=== PATIENT | female | born 1965 | race Caucasian/White ===

== ENCOUNTER 2017-09-25 21:57 | Emergency (ER) | payer SELFPAY ==
[~2017-09-25] VITALS: Ht 162.6 cm; Wt 90.0 kg
[~2017-09-25 21:57] MED LIST: AMLODIPINE BESYL5 MG PO; AMPICILLIN500 MG PO; ASPIRIN CHEWABL81 MG PO; ATUSS DS OR; AVELOX400 MG OR; CLARITHROMYCIN500 MG PO; GLIPIZIDE5 M2 PO; GLUCOPHAGE500 MG OR; LIPITOR10 MG OR; LIPITOR20 MG PO; LISINOPRIL20 M1 PO; LORTAB 5/3255 MG PO; MECLIZINE25 MG PO; METFORMIN1000 MG PO; METRONIDAZOL500 MG PO; NIACIN SR500 MG PO; OMEPRAZOLE20 MG PO; PHENERGAN25 MG RE; PRAVASTATIN20 MG PO; PREVACID30 M2 PO; TOPAMAX25 MG OR; TOUJEO SOL300 UNIT/M SC; VASERETIC1 TAB OR; WELLBUTRIN150 MG OR; ZOFRAN ODT4 MG PO; [UNRECOGNIZED DRUG - OTHER] OR
[2017-09-25 23:00] VITALS: BP 138/72
== END 2017-09-25 23:00 | disposition home or self-care (01) | DRG 605 ==
LOC: ED 21:57
PROC: 0HQFXZZ Repair Right Hand Skin, External Approach (ICD-10-PCS; principal; 2017-09-25)
DX: S61.411A Laceration without foreign body of right hand, initial encounter (principal); E11.9 Type 2 diabetes mellitus without complications; I10 Essential (primary) hypertension; W26.8XXA Contact with other sharp object(s), not elsewhere classified, initial encounter

== ENCOUNTER 2018-01-23 11:12 | Emergency (ER) | payer SELFPAY ==
[~2018-01-23] VITALS: Ht 162.6 cm; Wt 92.7 kg
[2018-01-23 11:52] VITALS: BP 153/88
[2018-01-23] MEDS ORDERED: BENADRYL 50MG C50 MG PO ×2 (12:25→12:29)
[2018-01-23] MEDS ORDERED: MEDDOSEPAK PO ×2 (12:25→12:29)
[2018-01-23] MEDS ORDERED: GLUCOTROL10 MG PO (12:28)
[2018-01-23] MEDS ORDERED: PHENERGAN25 MG RE (12:29)
== END 2018-01-23 12:37 | disposition home or self-care (01) | DRG 607 ==
LOC: ED 11:12
DX: S60.465A Insect bite (nonvenomous) of left ring finger, initial encounter (principal); M79.89 Other specified soft tissue disorders; E11.9 Type 2 diabetes mellitus without complications; I10 Essential (primary) hypertension; W57.XXXA Bitten or stung by nonvenomous insect and other nonvenomous arthropods, initial encounter

== ENCOUNTER 2018-09-05 09:07 | Emergency (ER) | payer SELFPAY ==
[~2018-09-05] VITALS: Ht 162.6 cm; Wt 90.9 kg
[~2018-09-05 09:07] MED LIST changes: +BENADRYL 50MG C50 MG PO; +GLUCOTROL10 MG PO; +MEDDOSEPAK PO
[2018-09-05 09:31] LABS: HEMATOCRIT 48.1 % (37.0-47.0); HEMOGLOBIN 15.3 g/dl (12.0-16.0); IMMATURE GRANULOCYTES 0.3 % (0.0-5.0); MEAN CELL VOLUME 85.4 fL CALC (80.0-100.0); MEAN CORPUSCULAR HGB 27.2 pG CALC (26.0-32.0); MEAN CORPUSCULAR HGB CONC 31.8 g/L CALC (32.0-36.0); NEUT# 13.44 thou/uL (2.00-7.15); RED BLOOD COUNT 5.63 mill/uL (4.20-5.60); RED CELL DISTRI WIDTH 13.2 % (11.5-15.5)
[2018-09-05 09:31] LABS: URINE BILIRUBIN - DIPSTICK NEGATIVE (NEGATIVE); URINE BLOOD DIPSTICK NEGATIVE (NEGATIVE); URINE COLOR YELLOW; URINE GLUCOSE - DIPSTICK NEGATIVE (NEGATIVE); URINE KETONE 15 mg/dL (NEGATIVE); URINE LEUK ESTERASE NEGATIVE (NEGATIVE); URINE NITRITE - DIPSTICK NEGATIVE (Negative); URINE PROTEIN - DIPSTICK NEGATIVE (NEG-TRACE); URINE UROBILINOGEN - DIPSTICK 0.2 E.U./dL (0.2)
[2018-09-05 10:15] LABS: ALKALINE PHOSPHATASE 82 u/l (38-126); ANION GAP 19 (6-22 (CALC)); BILIRUBIN, TOTAL 1.4 mg/dL (0.0-1.4); BUN 19 mg/dL (7-17); BUN/CREATININE RATIO 26 (12-20 (CALC)); CARBON DIOXIDE 29 mmol/l (22-30); CHLORIDE 98 mmol/l (95-108); CREATININE 0.8 mg/dL (0.5-1.0); GFR > 60 ML/MIN (>=60 (CALC)); GFR FOR AFR.AMER. > 60 ML/MIN (>=60 (CALC)); LIPASE 96 u/l (23-300); SGOT/AST 50 u/l (14-36); SODIUM 142 mmol/l (137-146); TOTAL PROTEIN 8.1 g/dL (6.3-8.2)
[2018-09-05] MEDS ORDERED: ONDANSETRON4 MG PO (10:58)
[2018-09-05 11:12] VITALS: BP 140/83
== END 2018-09-05 11:19 | disposition home or self-care (01) | DRG 392 ==
LOC: ED 09:07
PROVIDERS: Family Medicine
DX: K52.9 Noninfective gastroenteritis and colitis, unspecified (principal); E11.9 Type 2 diabetes mellitus without complications; I10 Essential (primary) hypertension

== ENCOUNTER 2019-04-22 10:10 | Emergency (ER) | payer SELFPAY ==
[~2019-04-22] VITALS: Ht 152.4 cm; Wt 90.9 kg
[~2019-04-22 10:10] MED LIST changes: +ONDANSETRON4 MG PO
[2019-04-22] MEDS ORDERED: TRAMADOL HYDROC50 MG PO (11:45)
[2019-04-22 12:05] VITALS: BP 119/79
== END 2019-04-22 12:05 | disposition home or self-care (01) | DRG 563 ==
LOC: ED 10:10
DX: S83.92XA Sprain of unspecified site of left knee, initial encounter (principal); S39.012A Strain of muscle, fascia and tendon of lower back, initial encounter; E11.9 Type 2 diabetes mellitus without complications; I10 Essential (primary) hypertension; X50.0XXA Overexertion from strenuous movement or load, initial encounter; Y93.9 Activity, unspecified; Z79.84 Long term (current) use of oral hypoglycemic drugs

== ENCOUNTER 2019-12-10 00:01 | Emergency (ER) | payer SELFPAY ==
[~2019-12-10] VITALS: Ht 162.6 cm; Wt 92.3 kg
[~2019-12-10 00:01] MED LIST changes: +TRAMADOL HYDROC50 MG PO
[2019-12-10 01:05] LABS: IMMATURE GRANULOCYTES 0.3 % (0.0-5.0); MEAN CELL VOLUME 84.4 fL CALC (80.0-100.0); NEUT# 5.76 thou/uL (2.00-7.15); RED BLOOD COUNT 4.88 mill/uL (4.20-5.60); RED CELL DISTRI WIDTH 13.3 % (11.5-15.5)
[2019-12-10 01:08] LABS: ALBUMIN 4.7 g/dL (3.2-5.0); ALKALINE PHOSPHATASE 66 u/l (38-126); AMYLASE 48 u/l (30-110); ANION GAP 13 (6-22 (CALC)); BUN 16 mg/dL (7-17); BUN/CREATININE RATIO 20 (12-20 (CALC)); CARBON DIOXIDE 31 mmol/l (22-30); CHLORIDE 98 mmol/l (95-108); CREATININE 0.8 mg/dL (0.5-1.0); GFR > 60 ML/MIN (>=60 (CALC)); GFR FOR AFR.AMER. > 60 ML/MIN (>=60 (CALC)); LIPASE 187 u/l (23-300); POTASSIUM 3.5 mmol/l (3.5-5.1); SGOT/AST 44 u/l (14-36); SODIUM 138 mmol/l (137-146); TOTAL PROTEIN 7.5 g/dL (6.3-8.2)
[2019-12-10 01:11] LABS: HEMATOCRIT 41.2 % (37.0-47.0); HEMOGLOBIN 13.2 g/dl (12.0-16.0)
[2019-12-10 01:20] LABS: URINE BILIRUBIN - DIPSTICK NEGATIVE (NEGATIVE); URINE BLOOD DIPSTICK LARGE (NEGATIVE); URINE GLUCOSE - DIPSTICK NEGATIVE (NEGATIVE); URINE KETONE TRACE mg/dL (NEGATIVE); URINE NITRITE - DIPSTICK NEGATIVE (Negative); URINE PROTEIN - DIPSTICK 100 mg/dL (NEG-TRACE); URINE SPECIFIC GRAVITY >=1.030; URINE UROBILINOGEN - DIPSTICK 0.2 E.U./dL (0.2)
[2019-12-10 01:20] LABS: MYOGLOBIN 36 ng/mL (0 - 62)
[2019-12-10 01:24] LABS: URINE LEUK ESTERASE NEGATIVE (NEGATIVE); URINE RBC >100 RBC/hpf (0-5)
[2019-12-10 01:25] LABS: URINE BACTERIA MANY hpf; URINE EPITHELIAL CELLS MODERATE EPI/hpf (0-FEW); URINE YEAST MODERATE hpf
[2019-12-10 01:27] LABS: URINE COLOR BLOODY
[2019-12-10] MEDS ORDERED: TORADOL PO (04:46)
[2019-12-10] MEDS ORDERED: TAMSULOSIN0.4 MG PO (04:46)
[2019-12-10] MEDS ORDERED: BACTRIM DS1 TAB PO (04:46)
[2019-12-10 05:07] VITALS: BP 148/73
[2019-12-11] MEDS ORDERED: QMIIZ ODT15 MG PO (08:30)
[2019-12-11] MEDS ORDERED: KEFLEX500 M1 PO ×2 (12:29)
[2019-12-11] MEDS ORDERED: PHENERGAN25 MG/TAB PO (12:29)
[2019-12-11] MEDS ORDERED: DIFLUCAN100 M1 PO ×2 (18:16)
== END 2019-12-10 05:25 | disposition home or self-care (01) ==
LOC: ED 00:01 → ED-I 03:15 → ED 05:25
PROVIDERS: Emergency Medicine
DX: N13.2 Hydronephrosis with renal and ureteral calculous obstruction (principal); E11.9 Type 2 diabetes mellitus without complications; I10 Essential (primary) hypertension; Z79.84 Long term (current) use of oral hypoglycemic drugs; Z11.59 Encounter for screening for other viral diseases
CPT/HCPCS: Q9967; S0164

== ENCOUNTER 2019-12-11 08:14 | Emergency (ER) | payer SELFPAY ==
[~2019-12-11] VITALS: Ht 162.6 cm; Wt 91.8 kg
[~2019-12-11 08:14] MED LIST changes: +BACTRIM DS1 TAB PO; +TAMSULOSIN0.4 MG PO; +TORADOL PO
[2019-12-11] MEDS ORDERED: QMIIZ ODT15 MG PO (08:30)
[2019-12-11 08:41] LABS: HEMATOCRIT 38.4 % (37.0-47.0); HEMOGLOBIN 12.3 g/dl (12.0-16.0); IMMATURE GRANULOCYTES 0.3 % (0.0-5.0); MEAN CORPUSCULAR HGB 27.2 pG CALC (26.0-32.0); NEUT# 9.66 thou/uL (2.00-7.15); RED BLOOD COUNT 4.52 mill/uL (4.20-5.60); RED CELL DISTRI WIDTH 13.4 % (11.5-15.5)
[2019-12-11 08:54] LABS: ALBUMIN 4.4 g/dL (3.2-5.0); ALKALINE PHOSPHATASE 71 u/l (38-126); ANION GAP 13 (6-22 (CALC)); BILIRUBIN, TOTAL 1.1 mg/dL (0.0-1.4); BUN 18 mg/dL (7-17); BUN/CREATININE RATIO 21 (12-20 (CALC)); CARBON DIOXIDE 28 mmol/l (22-30); CHLORIDE 102 mmol/l (95-108); CREATININE 0.9 mg/dL (0.5-1.0); GFR > 60 ML/MIN (>=60 (CALC)); GFR FOR AFR.AMER. > 60 ML/MIN (>=60 (CALC)); POTASSIUM 3.6 mmol/l (3.5-5.1); SGOT/AST 36 u/l (14-36); SODIUM 139 mmol/l (137-146); TOTAL PROTEIN 7.2 g/dL (6.3-8.2)
[2019-12-11 10:25] LABS: URINE BLOOD DIPSTICK LARGE (NEGATIVE); URINE GLUCOSE - DIPSTICK NEGATIVE (NEGATIVE); URINE KETONE 40 mg/dL (NEGATIVE); URINE LEUK ESTERASE NEGATIVE (NEGATIVE); URINE NITRITE - DIPSTICK NEGATIVE (Negative); URINE PH 6.5 (4.5-8.0); URINE PROTEIN - DIPSTICK 30 mg/dL (NEG-TRACE); URINE SPECIFIC GRAVITY 1.025
[2019-12-11 10:28] LABS: URINE BILIRUBIN - DIPSTICK SMALL (NEGATIVE); URINE COLOR BROWN; URINE EPITHELIAL CELLS FEW EPI/hpf (0-FEW); URINE RBC 50-100 RBC/hpf (0-5)
[2019-12-11] MEDS ORDERED: KEFLEX500 M1 PO ×2 (12:29)
[2019-12-11] MEDS ORDERED: PHENERGAN25 MG/TAB PO (12:29)
[2019-12-11 12:33] VITALS: BP 171/75
[2019-12-11] MEDS ORDERED: DIFLUCAN100 M1 PO ×2 (18:16)
== END 2019-12-11 12:50 | disposition home or self-care (01) | DRG 392 ==
LOC: ED 08:14
PROVIDERS: Student in an Organized Health Care Education/Training Program
DX: R11.2 Nausea with vomiting, unspecified (principal); N20.0 Calculus of kidney; E11.9 Type 2 diabetes mellitus without complications; I10 Essential (primary) hypertension; Z87.442 Personal history of urinary calculi; Z79.84 Long term (current) use of oral hypoglycemic drugs

== ENCOUNTER 2019-12-12 08:59 | Inpatient (IN) | payer SELFPAY ==
[~2019-12-12] VITALS: Ht 162.6 cm; Wt 96.0 kg
[~2019-12-12 08:59] MED LIST changes: +DIFLUCAN100 M1 PO; +KEFLEX500 M1 PO; +PHENERGAN25 MG/TAB PO; +QMIIZ ODT15 MG PO
--- NOTE | 2019-12-12 09:01 | NUR ---
Pt ambulated to room # 14 with steady gait for bedside triage
--- NOTE | 2019-12-12 10:00 | NUR ---
PT RESTING IVF CONTINUE PT DOZES INTERMITTENLTY, MOM REMAINS AT BEDSIDE, WILL CONTINUE TO MONITPOR
[2019-12-12 10:32] LABS: HEMATOCRIT 39.9 % (37.0-47.0); HEMOGLOBIN 12.8 g/dl (12.0-16.0); IMMATURE GRANULOCYTES 0.4 % (0.0-5.0); MEAN CELL VOLUME 84.7 fL CALC (80.0-100.0); MEAN CORPUSCULAR HGB 27.2 pG CALC (26.0-32.0); MEAN CORPUSCULAR HGB CONC 32.1 g/dL CAL (32.0-36.0); NEUT# 13.87 thou/uL (2.00-7.15); RED BLOOD COUNT 4.71 mill/uL (4.20-5.60); RED CELL DISTRI WIDTH 13.4 % (11.5-15.5)
[2019-12-12 10:47] LABS: ALBUMIN 4.3 g/dL (3.2-5.0); ALKALINE PHOSPHATASE 63 u/l (38-126); ANION GAP 15 (6-22 (CALC)); BILIRUBIN, TOTAL 1.7 mg/dL (0.0-1.4); BUN 20 mg/dL (7-17); BUN/CREATININE RATIO 21 (12-20 (CALC)); CARBON DIOXIDE 27 mmol/l (22-30); CHLORIDE 99 mmol/l (95-108); GFR 57 ML/MIN (>=60 (CALC)); GFR FOR AFR.AMER. > 60 ML/MIN (>=60 (CALC)); POTASSIUM 3.8 mmol/l (3.5-5.1); SGOT/AST 27 u/l (14-36); SODIUM 137 mmol/l (137-146); TOTAL PROTEIN 7.2 g/dL (6.3-8.2)
--- NOTE | 2019-12-12 11:00 | NUR ---
PT RESTING AWARE OF PLAMMED ADMISSION, STATES NAUSEA MILDLY IMPROVED MOM REMAINS AT BEDSIDE
--- NOTE | 2019-12-12 11:47 | NUR ---
PT AWARE OF PENDING ADMISSION, AWAITING BED ASSIGNMENT
--- NOTE | 2019-12-12 12:05 | NUR ---
PT TO MRI AT THIS TIME
[2019-12-12 12:07] LABS: URINE BILIRUBIN - DIPSTICK NEGATIVE (NEGATIVE); URINE BLOOD DIPSTICK MODERATE (NEGATIVE); URINE COLOR YELLOW; URINE GLUCOSE - DIPSTICK 250 mg/dL (NEGATIVE); URINE KETONE 40 mg/dL (NEGATIVE); URINE LEUK ESTERASE NEGATIVE (NEGATIVE); URINE NITRITE - DIPSTICK NEGATIVE (Negative); URINE PROTEIN - DIPSTICK NEGATIVE (NEG-TRACE); URINE UROBILINOGEN - DIPSTICK 0.2 E.U./dL (0.2)
[2019-12-12 12:09] LABS: URINE EPITHELIAL CELLS FEW EPI/hpf (0-FEW)
--- NOTE | 2019-12-12 13:06 | NUR ---
REPORT CALLED TO KARINE ON MED SURG ROOM 272 ASSIGNED, STATES SHE SPOKE WITH ABOUT PT, INFRO RELATD TO KARINE
--- NOTE | 2019-12-12 13:07 | NUR ---
ESCORTED PT MOM TO HER ROOM ON MED SURG AND PT WAS BEHIND US TO ROOM 272 VIA WHEELCHAIR, MRI IS COMPLETE AT THIS TIME.
--- NOTE | 2019-12-12 13:21 | NUR ---
PT ARRIVED TO [facility] ROOM 272 IN STABLE CONDITION VIA WHEELCHAIR ACCOMPAINED BY MRI STAFF. PT IS A/O X3 AND AMBULATORY. PT WALKED FROM WHEELCHAIR TO SCALE AND BED WITH A STEADY GAIT. ASSESSMENT AND VITALS COMPLETED AT THIS TIME. BP 177/78, HR 73, O2 96% ON ROOM AIR. RESPIRATIONS ARE EVEN AND UNLABORED. LUNG SOUNDS ARE CLEAR. HEART RHYTHM IS NORMAL. BOWEL SOUNDS ARE HYPOACTIVE WITH SLIGHT TENDERNESS IN ALL QUADRANTS.RADIAL AND PEDAL PULSES ARE STRONG WITH NORMAL CAPILLARY REFILL. SKIN IS WARM/DRY WITH NO BREAKDOWN. PT DESCRIBED A 5/10 PAIN IN LEFT BACK AND HEAD ACHE. MORPHINE ADMINISTERED ALONG WITH ZOFRAN TO HELP WITH NAUSEA. #20G IN LAC FLUSHED AND FLUIDS STARTED AT 100ML ORDERED, SITE APPEARS HEALTHY AND PATENT. GLUCOSE RESULTING IN 183. PT INFORMS WRITTER THAT SHE CAME TO THE ER FOR THE PAST 3 DAYS FOR VOMITING. AND BACK PAIN. PT STATES THAT SHE HASNT EATEN MUCH DUE TO HER VOMITNG.PT ADMITTED FOR ACUTE CHOLECYSTITIS. ABDOMENAL ULTRA SOUNDS SHOWED HEPATOMEGLY WITH HEPATIC STENOSIS SLUDGE AND STONES IN BLADDER AND A POSITIVE MACE SIGN . ORDERS FOR PT TO BE NPO AT THIS TIME. AWAITING FOR CONSULT FROM DANNY. PT REPORTS ALLERGIES TO PENICILLINS, ALLERGY BAND AND FALL RISK BAND APPLIED AT THIS TIME. PT DENIES ANY PAIN OR DISCOMFORTS AT THIS TIME. ALL SAFTEY PECATUIONS IN PLACE, PT ORIENTED TO ROOM AND CALL LIGHT SYSTEM. WILL CONTINUE TO MONITOR
[2019-12-12 13:41] VITALS: BP 177/78
[2019-12-12 14:56] VITALS: BP 174/81
--- NOTE | 2019-12-12 14:57 | NUR ---
REASSESSMENT OF BP AND PAIN AT THIS TIME. BP 174/81, HR 66, O2 93% ON ROOM AIR. RESPIRATIONS ARE EVEN AND UNLABORED WITH NO SIGNS OF DISTRESS. ITALIAWHEATHER TO GIVE APRESOLINE PT INFORMS PT THAT MORPHINE HELPED AND SHE HAS NO PAIN AT THIS TIME. ALL SAFTEY PRECAUTIONS IN PLACE WITH CALL LIGHT IN REACH.
--- NOTE | 2019-12-12 15:07 | NUR ---
APRESOLINE ADMINISTERED BY LUIS MANUEL AT THIS TIME. BP 181/72, HR 68, TEMPATURE 100.5. TYLENOL TO BE ADMINISTERED WITH A SIP OF WATER TO BE ADMINISTERED FOR TEMPATURE. ALL SAFTEY PRECAUTIONS REMAIN IN PLACE. WILL CONTINUE TO MONITOR
[2019-12-12 15:17] VITALS: BP 181/82
[2019-12-12 15:33] VITALS: BP 164/62
--- NOTE | 2019-12-12 15:39 | NUR ---
REASSESMENT OF BP AFTER APRESOLINE ADMINISTERED. BP 164/62, HR 85, O2 96% ON ROOM AIR. RESPIRATIONS ARE EVEN AND UNLABORED. TYLENOL ADMINISTERED FOR FEVER. PT DENIES ANY PAIN OR DISCOMOFORTS AT THIS TIME. ALL SAFTEY PRECAUTIONS REMAIN IN PLACE. WILL CONTIUE TO MONITOR
[2019-12-12 16:10] VITALS: BP 144/76
--- NOTE | 2019-12-12 16:10 | NUR ---
REASSESSMENT OF BP AND TEMPATURE AT THIS TIME. BP 144/76, HR 85, O2 96% ON ROOM AIR. RESPIRATIONS ARE EVEN AND UNLABORED. TEMPATURE RESULTING IN 99.0.PT DENIES ANY PAIN OR DISCOMFORTS AT THIS TIME. ALL SAFTEY PRECAUTIONS REAMIN IN PLACE. WILL CONTIUE TO MONITOR
--- NOTE | 2019-12-12 16:35 | NUR ---
CALLED DR. PRINGLE OFFICE REGARDING CONSULTATION. SPOKE TO RAUL AND GAVE INFORMATION REGARDING THIS PATIENT.
[2019-12-12 19:46] VITALS: BP 103/63
[2019-12-13] VITALS (11 sets, daily range): BP systolic 109–136; BP diastolic 50–79
--- NOTE | 2019-12-13 02:21 | NUR ---
PT IN BED WITH EYES CLOSED. NO S/S OF DISTRESS. MEDICATIONS GIVEN AND TOLERATED WELL. ON iv ABT THERAPY. RESIDENT IS CONTINENT OF B/B AND ABLE TO AMBULATE TO TOILET WITH NO ASSIST NEEDED. NPO AT THIS TIME FOR SURGERY IN AM.
--- NOTE | 2019-12-13 05:01 | NUR ---
PT IN BED WITH EYES CLOSED. EASILY AROUSED. MEDICATIONS GIVEN PRESCRIBED. RESIDENT IS ABLE TO AMBULATE WITH TOILET WITH NO COMPLICATIONS. GAIT AND BALANCE STEADY. NORMAL SALINE RUNNING AT 100ML/HR AND PT TOLERATING WELL. IV SITE #20 IN LAC HAS NO S/S OF INFILTRATION OR INFECTION. PT CONTINUES TO BE NPO STATUS. RFESPIRATION EVEN AND NON LABORED. CALL LIGHT WITHIN REACH AND BED IN LOWEST POSITION. PT SCHEDULED FOR SURGICAL PROCEDURE ON TOMORROW.
--- NOTE | 2019-12-13 05:27 | NUR ---
ASSESSED URINE AND KATHY COLORED AND CLOUDY IN APPEARANCE. PT DENIES PAIN/FREQUENCT/URGENCY ON URINATION.
[2019-12-13 05:37] LABS: IMMATURE GRANULOCYTES 0.4 % (0.0-5.0); MEAN CELL VOLUME 86.9 fL CALC (80.0-100.0); MEAN CORPUSCULAR HGB 27.4 pG CALC (26.0-32.0); MEAN CORPUSCULAR HGB CONC 31.6 g/dL CAL (32.0-36.0); NEUT# 11.13 thou/uL (2.00-7.15); RED BLOOD COUNT 3.9 mill/uL (4.20-5.60); RED CELL DISTRI WIDTH 13.8 % (11.5-15.5)
[2019-12-13 05:40] LABS: HEMATOCRIT 33.9 % (37.0-47.0); HEMOGLOBIN 10.7 g/dl (12.0-16.0)
[2019-12-13 05:47] LABS: ALKALINE PHOSPHATASE 53 u/l (38-126); ANION GAP 9 (6-22 (CALC)); BILIRUBIN, TOTAL 1.8 mg/dL (0.0-1.4); BUN 19 mg/dL (7-17); BUN/CREATININE RATIO 25 (12-20 (CALC)); CARBON DIOXIDE 26 mmol/l (22-30); CHLORIDE 106 mmol/l (95-108); CREATININE 0.8 mg/dL (0.5-1.0); GFR > 60 ML/MIN (>=60 (CALC)); GFR FOR AFR.AMER. > 60 ML/MIN (>=60 (CALC)); POTASSIUM 3.4 mmol/l (3.5-5.1); SGOT/AST 23 u/l (14-36); SODIUM 138 mmol/l (137-146)
[2019-12-13 05:58] LABS: ALBUMIN 3.4 g/dL (3.2-5.0)
--- NOTE | 2019-12-13 07:40 | NUR ---
RECIEVED REPORT FROM NOREEN SALCEDO PT SLEEPING IN LOW FOWLERS POSIITION. RESPIRATIONS ARE EVEN AND UNLABORED.IV FLUIDS RUNNING AT 100 ML ORDERED. NO SIGNS OF ANY PAIN OR DISTRESS AT THIS TIME. ALL SAFTEY PERCAUTIONS IN PLACE
--- NOTE | 2019-12-13 07:45 | NUR ---
BLAKE,OR NOTIFIED OF ORDER FOR CONSENT FOR CYSTOSCOPY,RIGHT RETROGRADE PYELOGRAM,YRETEROSCOPY,LASER LITHOTRIPSY,STENT FOR 4 PM.
--- NOTE | 2019-12-13 09:40 | NUR ---
PT RESTING IN SEMI FOWLERS POSITION WITH MOTHER AT BEDSIDE. ASSESSMENT AND VITALS COMPLETED AT THIS TIME. BP 126/66, HR 73, O2 92% ON ROOM AIR. RESPIRATIONS ARE EVEN AND UNLABORED. LUNG SOUNDS ARE CLEAR. HEART RHYTHM IS NORMAL. BOWEL SOUNDS ARE ACTIVE IN ALL QUADRANTS WITH SLIGHT TENDERNESS. RADIAL AND PEDAL PULSES ARE STRONG WITH NORMAL CAPILLARY REFILL. IV FLUIDS RUNNING AT 100ML ORDERED, SITE APPEARS HEALTHY AND PATENT. PT DOES REPORT WITH TRACE EDEMA IN LEFT HAND.SKIN IS WARM AND DRY WITH NO BREAKDOWN. PT COMPLAINING OF 3/10 HEAD ACHE, OFFERED PAIN MED TO ASSIST WITH THE MED ACHE. PT REFUSED STATING THAT "SHE WILL JUST DEAL WITH IF IT DOESNT AFFECT HER GOING TO SURGERY". TO SCHEDULED TO HAVE STENT AT 1500.PT DENIES ANY OTHER PAINS OR DISCOMFORTS AT THIS TIME. ALL SAFTEY PRECATUIONS IN PLACE WITH CALL LIGHT IN REACH. WILL CONTINUE TO MONITOR
--- NOTE | 2019-12-13 10:01 | NUR ---
AT BEDSIDE DISCUSSING POC WITH PT AND MOTHER.
--- NOTE | 2019-12-13 10:02 | NUR ---
DR PRADO AT BED SIDE DISCUSSING POC AT THIS TIME.
--- NOTE | 2019-12-13 11:41 | NUR ---
AT BEDSIDE DISCUSSING POC WITH PATIENT.
--- NOTE | 2019-12-13 12:00 | NUR ---
PT RESTING IN SEMI FOWLERS POSTITION WATCHING TV WITH MOTHER AT BEDSIDE. RESPIRATIONS ARE EVEN AND UNLABORED. PT INFORMED WRITTER THAT SHE STILL HAS HEAD ACHE BUT REFUSED PAIN MEDICATION. PT DENIES ANY OTHER PAINS OR DSICOMFORTS.ALL SAFTEY PRECAUTIONS IN PLACE WITH CALL LIGHT IN REACH. WILL CONTINUE TO MONITOR
--- NOTE | 2019-12-13 12:11 | NUR ---
AT BEDSIDE DISCUSSING POC.
--- NOTE | 2019-12-13 14:58 | NUR ---
PT TRANSPORTED TO OR IN STABLE CONDITION VIA STRETCHER ACCOMPANIED BY NOREEN PRUITT AND NOREEN MIJARES
--- NOTE | 2019-12-13 17:52 | NUR ---
PT RETURNED FROM OR TO MED SURG ROOM 272 IN STABLE CONDITION VIA STRETCHER ACCOMPAINED BY OR STAFF. BED SIDE REPORT OBTAINED FROM NOREEN AMOR .PT RESPIRATIONS ARE EVEN AND UNLABORED, LUNG SOUNDS ARE CLEAR. HEART RHYTHM IS NORMAL.PT PLACED ON BED MOON AT THIS TIME. PT DENIES ANY PAINS OR DISCOMFORTS AT THIS TIME. PT ENCOURAGED TO CALL FOR ASSISTANCE, ALL SAFTEY PRECAUTIONS REMAIN IN PLACE. WILL CONTIINUE TO MONITOR.
--- NOTE | 2019-12-13 20:15 | NUR ---
PT ASSISTED TO THE RESTROOM, GATE STEADY, PT COMPLAINS OF HAVING PAIN WHEN URINATING. URINE BLOOD TINGED. PT ASSISTED BACK TO BED.
--- NOTE | 2019-12-13 21:19 | NUR ---
PT RESTING IN BED, ALERT AND ORIENTED. RESPIRATIONS EVEN AND UNLABORED ON O2 @ 2L VIA NC, LUNGS SOUND CLEAR. PEDAL PULSES STRONG. PT DENIES ANY PAIN OR DISCOMFORT AT THIS TIME. SAFETY PRECAUTIONS IN PLACE. WILL CONTINUE TO MONITOR.
[2019-12-14] VITALS (10 sets, daily range): BP systolic 130–148; BP diastolic 48–81
--- NOTE | 2019-12-14 | NUR ---
PT RESTING IN BED, RESPIRATIONS EVEN AND UNLABORED ON O2 @ 2L VIA NC. NO S/S OF DISTRESS AT THIS TIME. SAFETY PRECAUTIONS IN PLACE. WILL CONTINUE TO MONITOR.
--- NOTE | 2019-12-14 04:21 | NUR ---
PT RESTING IN BED. NO S/S OF DISTRESS AT THIS TIME. SAFETY PRECAUTIONS IN PLACE. WILL CONTINUE TO MONITOR.
[2019-12-14 05:39] LABS: HEMATOCRIT 32.3 % (37.0-47.0); MEAN CELL VOLUME 87.8 fL CALC (80.0-100.0); MEAN CORPUSCULAR HGB 27.2 pG CALC (26.0-32.0); RED BLOOD COUNT 3.68 mill/uL (4.20-5.60); RED CELL DISTRI WIDTH 13.9 % (11.5-15.5)
[2019-12-14 06:09] LABS: ALBUMIN 3.2 g/dL (3.2-5.0); ALKALINE PHOSPHATASE 48 u/l (38-126); ANION GAP 10 (6-22 (CALC)); BUN 18 mg/dL (7-17); BUN/CREATININE RATIO 26 (12-20 (CALC)); CARBON DIOXIDE 25 mmol/l (22-30); CHLORIDE 108 mmol/l (95-108); CREATININE 0.7 mg/dL (0.5-1.0); GFR > 60 ML/MIN (>=60 (CALC)); GFR FOR AFR.AMER. > 60 ML/MIN (>=60 (CALC)); POTASSIUM 3.4 mmol/l (3.5-5.1); SGOT/AST 18 u/l (14-36); SODIUM 139 mmol/l (137-146); TOTAL PROTEIN 5.8 g/dL (6.3-8.2)
--- NOTE | 2019-12-14 10:30 | NUR ---
PT RETURNS FROM SURGERY, CHOLECYSTECTOMY. PT IS AWAKE, ALERT, ORIENTED X 3. LUNGS CLEAR, 2 LPM FOR 90% O-2 SAT. ABDOMINAL SITES WNL, DERMABONDED. PT DENIES NEED FOR PAIN AT THIS TIME. IV TURNED TO KVA PER SWELLING TO ARMS, MOSTLY LEFT WHERE IV IS PLACED.
--- NOTE | 2019-12-14 13:41 | NUR ---
PT RETURNS FROM CHOLECYSTECTOMY, SEEN AT REST IN THE BED IN NO DISTRESS. ABDOMEN WITH FOUR INCISIONS WITH DERMABOND APPLIED. PT AMBULATORY TO BR WITH MINIMAL ASSIST. PT TOLERATED FULL LIQUID DIET.
--- NOTE | 2019-12-14 18:15 | NUR ---
PT HAS SHOWERED, FEELS BETTER, SITS UP IN CHAIR AT THIS TIME. PT AGREES TO ADVANCE DIET FOR BREAKFAST. NO REPORT OF SIGNIFICANT PAIN, NO DISTRESS NOTED.
--- NOTE | 2019-12-14 19:45 | NUR ---
PT RESTING IN BED, ALERT AND ORIENTED. RESPIRATIONS EVEN AND UNLABORED ON 02 @ 2L VIA NC. LUNGS SOUND CLEAR. PEDAL PULSES STRONG. PT REPORTS PAIN 3/10 DENIES NEEDING PAIN MEDICATION OR COMFORT MEASURES. SAFETY PRECAUTIONS IN PLACE. WILL CONTINUE TO MONITOR.
--- NOTE | 2019-12-15 00:38 | NUR ---
PT RESTING IN BED, NO S/S OF DISTRESS AT THIS TIME. SAFETY PRECAUTIONS IN PLACE. WILL CONTINUE TO MONITOR.
--- NOTE | 2019-12-15 04:11 | NUR ---
PT RESTING IN BED. NO S/S OF DISTRESS AT THIS TIME. SAFETY PRECAUTIONS IN PLACE. WILL CONTINUE TO MONITOR.
[2019-12-15 04:15] VITALS: BP 134/66
[2019-12-15 07:58] VITALS: BP 155/75
--- NOTE | 2019-12-15 08:00 | NUR ---
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
[2019-12-15 08:59] LABS: HEMATOCRIT 32.7 % (37.0-47.0); HEMOGLOBIN 10.2 g/dl (12.0-16.0); IMMATURE GRANULOCYTES 0.5 % (0.0-5.0); MEAN CORPUSCULAR HGB 27.1 pG CALC (26.0-32.0); MEAN CORPUSCULAR HGB CONC 31.2 g/dL CAL (32.0-36.0); NEUT# 7.27 thou/uL (2.00-7.15); RED BLOOD COUNT 3.76 mill/uL (4.20-5.60); RED CELL DISTRI WIDTH 13.7 % (11.5-15.5)
[2019-12-15 09:24] LABS: ANION GAP 9 (6-22 (CALC)); BUN 19 mg/dL (7-17); BUN/CREATININE RATIO 25 (12-20 (CALC)); CARBON DIOXIDE 29 mmol/l (22-30); CHLORIDE 105 mmol/l (95-108); CREATININE 0.7 mg/dL (0.5-1.0); GFR > 60 ML/MIN (>=60 (CALC)); GFR FOR AFR.AMER. > 60 ML/MIN (>=60 (CALC)); POTASSIUM 3.8 mmol/l (3.5-5.1); SODIUM 139 mmol/l (137-146)
--- NOTE | 2019-12-15 10:07 | NUR ---
PT WITH VISITOR AT BEDSIDE; NO COMPLAINTS VOICED; REQUEST DIET JOEL, PROVIDED; CALL ARIZMENDI WITHIN REACH; WILL CONTINUE TO MONITOR.
--- NOTE | 2019-12-15 12:15 | NUR ---
PT UP IN CHAIR, EATING LUNCH; VISITOR IN ROOM; NO COMPLAINTS OR CONCERNS VOICED; CALL ARIZMENDI WITHIN REACH; WILL CONTINUE TO MONITOR.
--- NOTE | 2019-12-15 12:16 | NUR ---
DR. JAVIER IN TO SEE PT; PLAN OF CARE DISCUSSED.
--- NOTE | 2019-12-15 12:48 | NUR ---
DR. BEVERLY IN TO SEE PT; PLAN OF CARE DISCUSSED; PT MEDICATED FOR PELVIC PAIN 01/04; CALL ARIZMENDI WITHIN REACH; WILL CONTINUE TO MONITOR
--- NOTE | 2019-12-15 13:59 | NUR ---
PT MEDICATED FOR C/O NAUSEA; VISITOR AT BEDSIDE; CALL ARIZMENDI WITHIN REACH; WILL CONTINUE TO MONITOR.
--- NOTE | 2019-12-15 14:45 | NUR ---
PT WITH APPROX 300 ML OF EMESIS; MEDICATED WITH COMPAZINE 10 MG IV ORDERED; CALL ARIZMENDI WITHIN REACH; WILL CONTINUE TO MONITOR.
[2019-12-15 15:30] VITALS: BP 152/77
[2019-12-15 18:53] VITALS: BP 163/73
--- NOTE | 2019-12-15 20:30 | NUR ---
UPON ENTERING ROOM PT FOUND TO BE SITTING UP IN BED. PHYSICAL ASSESMENT COMPLETE. PLAN OF CARE REVIEWED. VERBALIZES UNDERSTANDING AND DENIES QUESTIONS. PT REPORTS UNABLE TO TOLERATE MEALS TODAY SECONDARY TO NAUSEA. FINGERSTICK GLUCOSE 167mg/dl. INSULIN COVERAGE HELD. PT DENIES OFFER FOR SNACK. DENIES NAUSEA OR PAIN @ THIS TIME. DENIES FURTHER NEEDS @ THIS TIME. ITEMS WITHIN REACH, BED LOCKED IN LOW POSITION W/ BEDRAILS UP X2, CALL ARIZMENDI WITHIN REAC, AGREES TO CALL PRN.
[2019-12-15 23:00] VITALS: BP 191/86
--- NOTE | 2019-12-15 23:42 | NUR ---
NIBP TAKEN BY MARIOLA COTE @ 1850 191/86mmHg, PT ASYMPTOMATIC, DENIES PAIN, NO APPARENT DISTRESS. PRN HYDRALAZINE GIVEN, SEE AUG.
[2019-12-16 00:21] VITALS: BP 174/82
--- NOTE | 2019-12-16 00:21 | NUR ---
F/U NIBP TAKEN BY Dorothea MORAN 174/72mmHg.
[2019-12-16 04:00] VITALS: BP 149/81
--- NOTE | 2019-12-16 05:13 | NUR ---
NIBP TAKEN BY Dorothea MORAN @ 0400 IS 149/81mmHg
--- NOTE | 2019-12-16 06:24 | NUR ---
900 ML TEA COLORED URINE EMPTIED FROM "HAT", PT MEDICATED FOR C/O L FLANK PAIN, SEE MAR FOR ADMIN AND F/U.
--- NOTE | 2019-12-16 08:42 | NUR ---
ASSESSMENT DONE. PT STATED SHE HAS PAIN IN BACK MEDICATED WITH TYLENOL . PT ALSO STATED HAVE NAUSEA. MEDICATED PT WITH ZOFRAN. IVF INFUSING WELL. PT STATED THAT SHE HAS BEEN USING HER I.S. PT DENIES ANY OTHER NEEDS AT THIS TIME. CALL LIGHT IN REACH.
[2019-12-16 08:43] VITALS: BP 152/65
--- NOTE | 2019-12-16 12:00 | NUR ---
PT IS SITTING IN RECLINER. PT DENIES PAIN MEDICATION AT THIS TIME. PT STATED PAIN IS OKAY. PT REFUSED PRUINE JUICE. MEDICATED PT WITH MILK OF MAG. PT DENIES ANY OTHER NEEDS AT THIS TIME. PT MOM IN ROOM. CALL LIGHT IN REACH.
[2019-12-16 15:29] VITALS: BP 120/67
--- NOTE | 2019-12-16 15:50 | NUR ---
PT AMBULATING IN THE HALLWAY WITH A SLOW AND STEADY GAIT. PT MOM AT SIDE.
--- NOTE | 2019-12-16 20:35 | NUR ---
PHYSICAL ASSESMENT COMPLETE. VS ASSESSED. PLAN OF CARE REVIEWED. PT VERBALIZES UNDERSTANDING, DENIES QUESTIONS. PT DENIES NEEDS AT THIS TIME. ITEMS WITHIN REACH. BED LOCKED IN LOW POSITION W/ BEDRAILS UP X2. CALL ARIZMENDI WITHIN REACH, AGREES TO CALL PRN.
[2019-12-16 21:00] VITALS: BP 127/69
[2019-12-16 21:34] VITALS: BP 127/69
--- NOTE | 2019-12-17 01:00 | NUR ---
PT APPEARS TO BE SLEEPING COMFORTABLY. NO APPARENT DISTRESS. RESPIRATIONS REGULAR AND UNLABORED. CALL ARIZMENDI REMAINS WITHIN REACH.
[2019-12-17 05:12] LABS: HEMATOCRIT 33.1 % (37.0-47.0); HEMOGLOBIN 10.2 g/dl (12.0-16.0); IMMATURE GRANULOCYTES 0.3 % (0.0-5.0); MEAN CELL VOLUME 86.6 fL CALC (80.0-100.0); MEAN CORPUSCULAR HGB 26.7 pG CALC (26.0-32.0); MEAN CORPUSCULAR HGB CONC 30.8 g/dL CAL (32.0-36.0); NEUT# 5.99 thou/uL (2.00-7.15); RED BLOOD COUNT 3.82 mill/uL (4.20-5.60); RED CELL DISTRI WIDTH 13.6 % (11.5-15.5)
[2019-12-17 05:25] LABS: ANION GAP 11 (6-22 (CALC)); BUN 12 mg/dL (7-17); BUN/CREATININE RATIO 18 (12-20 (CALC)); CARBON DIOXIDE 33 mmol/l (22-30); CHLORIDE 98 mmol/l (95-108); CREATININE 0.7 mg/dL (0.5-1.0); GFR > 60 ML/MIN (>=60 (CALC)); GFR FOR AFR.AMER. > 60 ML/MIN (>=60 (CALC)); POTASSIUM 3.2 mmol/l (3.5-5.1); SODIUM 138 mmol/l (137-146)
--- NOTE | 2019-12-17 07:20 | NUR ---
REPORT RECEIVED FROM NOREEN ROBERTS. PT SITTING UP IN RECLINER; ALERT AND ORIENTED. DENIES PAIN, BUT REQUESTS A PERCOCET TO AVOID PAIN AND HELP HER RELAX FOR STENT REMOVAL. RESPIRATIONS EVEN AND UNLABORED ON ROOM AIR. ABDOMINAL DRESSINGS CDI. PLAN OF CARE REVIEWED. PT ENCOURAGED TO VERBALIZE CONCERNS. STATES UNDERSTANDING. SAFETY MEASURES IN PLACE. CALL LIGHT WITHIN REACH.
[2019-12-17 08:00] VITALS: BP 151/51
--- NOTE | 2019-12-17 09:05 | NUR ---
URETERAL STENT REMOVED AND PT UP TO SHOWER. TOLERATED WELL.
--- NOTE | 2019-12-17 10:25 | NUR ---
POTASSIUM INFUSING ALONG WITH IV FLUIDS; PT BACK UP INTO CHAIR. VISITOR AT BEDSIDE. C/O MILD LEFT SIDE PAIN.
--- NOTE | 2019-12-17 12:03 | NUR ---
IV site discontinued, cath intact. No edema , no redness, voices no discomfort.
--- NOTE | 2019-12-17 12:12 | NUR ---
Discharge instructions given. Patient verbalizes understanding of same. Discharged in stable condition via Wheelchair to Home with family. All belongings sent with pt.
== END 2019-12-17 12:10 | disposition home or self-care (01) | DRG 418 ==
LOC: ED 08:59 → ED-I 11:45 → ED 11:55 → MS2 11:56 → ED-I 11:56 → MS2 12:23
PROVIDERS: Nurse Practitioner Family; Student in an Organized Health Care Education/Training Program; ADMIT Internal Medicine; ATTEND Internal Medicine
PROC: 0TC78ZZ Extirpation of Matter from Left Ureter, Via Natural or Artificial Opening Endoscopic (ICD-10-PCS; 2019-12-13)
PROC: 0T778DZ Dilation of Left Ureter with Intraluminal Device, Via Natural or Artificial Opening Endoscopic (ICD-10-PCS; 2019-12-13)
PROC: 0FT44ZZ Resection of Gallbladder, Percutaneous Endoscopic Approach (ICD-10-PCS; principal; 2019-12-14)
DX: K81.0 Acute cholecystitis (principal); N13.2 Hydronephrosis with renal and ureteral calculous obstruction; E11.9 Type 2 diabetes mellitus without complications; I10 Essential (primary) hypertension; E78.5 Hyperlipidemia, unspecified; Z79.84 Long term (current) use of oral hypoglycemic drugs; Z20.828 Contact with and (suspected) exposure to other viral communicable diseases
CPT/HCPCS: C1769; J0131; J1100; J2710; Q9967

== ENCOUNTER 2022-03-30 20:10 | Emergency (ER) | payer SELFPAY ==
[~2022-03-30] VITALS: Ht 162.6 cm; Wt 91.6 kg
[2022-03-31 00:07] LABS: IMMATURE GRANULOCYTES 0.1 % (0.0-5.0); MEAN CELL VOLUME 85.7 fL CALC (80.0-100.0); MEAN CORPUSCULAR HGB CONC 32.7 g/dL CAL (32.0-36.0); NEUT# 8.1 thou/uL (2.00-7.15); RED BLOOD COUNT 4.82 mill/uL (4.20-5.60); RED CELL DISTRI WIDTH 13.1 % (11.5-15.5)
[2022-03-31 00:08] LABS: HEMATOCRIT 41.3 % (37.0-47.0); HEMOGLOBIN 13.5 g/dl (12.0-16.0)
[2022-03-31 00:31] LABS: AMYLASE 57 u/l (30-110); ANION GAP 16 (6-22 (CALC)); BILIRUBIN, TOTAL 1.7 mg/dL (0.0-1.4); BUN 19 mg/dL (7-17); BUN/CREATININE RATIO 23 (12-20 (CALC)); CARBON DIOXIDE 31 mmol/l (22-30); CHLORIDE 93 mmol/l (95-108); CREATININE 0.8 mg/dL (0.5-1.0); GFR FOR AFR.AMER. > 60 ML/MIN (>=60 (CALC)); GFR OTHER RACES > 60 ML/MIN (>=60 (CALC)); LIPASE 70 u/l (23-300); POTASSIUM 3.1 mmol/l (3.5-5.1); SODIUM 137 mmol/l (137-146)
[2022-03-31 00:42] LABS: ALBUMIN 4.7 g/dL (3.2-5.0); ALKALINE PHOSPHATASE 75 u/l (38-126); SGOT/AST 47 u/l (14-36); TOTAL PROTEIN 7.9 g/dL (6.3-8.2)
[2022-03-31 00:43] LABS: MYOGLOBIN 141 ng/mL (0 - 62)
[2022-03-31] MEDS ORDERED: ONDANSETRON4 MG PO (02:38)
[2022-03-31] MEDS ORDERED: CIPROFLOXACN500 MG PO (02:39)
[2022-03-31 04:45] VITALS: BP 152/68
[2022-03-31 05:13] LABS: URINE BILIRUBIN - DIPSTICK NEGATIVE (NEGATIVE); URINE BLOOD DIPSTICK NEGATIVE (NEGATIVE); URINE COLOR YELLOW; URINE GLUCOSE - DIPSTICK NEGATIVE (NEGATIVE); URINE KETONE NEGATIVE (NEGATIVE); URINE LEUK ESTERASE NEGATIVE (NEGATIVE); URINE PH 5.5 (4.5-8.0); URINE PROTEIN - DIPSTICK NEGATIVE (NEG-TRACE); URINE UROBILINOGEN - DIPSTICK 0.2 E.U./dL (0.2)
[2022-03-31 05:17] LABS: URINE NITRITE - DIPSTICK NEGATIVE (Negative)
[2022-04-01] MEDS ORDERED: K-TAB20 MEQ PO ×2 (17:05→17:14)
[2022-04-01] MEDS ORDERED: PREVACID30 M1 PO ×2 (17:05→17:14)
[2022-04-01] MEDS ORDERED: ZOFRAN4 MG/TAB PO ×2 (17:05→17:14)
== END 2022-03-31 03:20 | disposition home or self-care (01) | DRG 392 ==
LOC: ED 20:10
PROVIDERS: Emergency Medicine
DX: A08.4 Viral intestinal infection, unspecified (principal); E87.6 Hypokalemia; I10 Essential (primary) hypertension; E11.9 Type 2 diabetes mellitus without complications; Z79.84 Long term (current) use of oral hypoglycemic drugs
CPT/HCPCS: Q9967

== ENCOUNTER 2022-04-01 14:10 | Emergency (ER) | payer SELFPAY ==
[~2022-04-01] VITALS: Ht 162.6 cm; Wt 91.3 kg
[2022-04-01] VITALS (9 sets, daily range): BP systolic 101–128; BP diastolic 39–65
[~2022-04-01 14:10] MED LIST changes: +CIPROFLOXACN500 MG PO
[2022-04-01 14:35] LABS: HEMATOCRIT 40.1 % (37.0-47.0); HEMOGLOBIN 13.3 g/dl (12.0-16.0); IMMATURE GRANULOCYTES 0.1 % (0.0-5.0); MEAN CELL VOLUME 85.3 fL CALC (80.0-100.0); MEAN CORPUSCULAR HGB 28.3 pG CALC (26.0-32.0); MEAN CORPUSCULAR HGB CONC 33.2 g/dL CAL (32.0-36.0); NEUT# 6.94 thou/uL (2.00-7.15); RED BLOOD COUNT 4.7 mill/uL (4.20-5.60); RED CELL DISTRI WIDTH 12.9 % (11.5-15.5)
[2022-04-01 14:55] LABS: ALBUMIN 4.3 g/dL (3.2-5.0); ALKALINE PHOSPHATASE 67 u/l (38-126); ANION GAP 15 (6-22 (CALC)); BILIRUBIN, TOTAL 1.6 mg/dL (0.0-1.4); BUN 14 mg/dL (7-17); BUN/CREATININE RATIO 16 (12-20 (CALC)); CARBON DIOXIDE 33 mmol/l (22-30); CHLORIDE 91 mmol/l (95-108); CREATININE 0.9 mg/dL (0.5-1.0); GFR FOR AFR.AMER. > 60 ML/MIN (>=60 (CALC)); GFR OTHER RACES > 60 ML/MIN (>=60 (CALC)); LIPASE 91 u/l (23-300); POTASSIUM 2.9 mmol/l (3.5-5.1); SGOT/AST 47 u/l (14-36); SODIUM 137 mmol/l (137-146); TOTAL PROTEIN 7.1 g/dL (6.3-8.2)
[2022-04-01 16:45] LABS: URINE BLOOD DIPSTICK NEGATIVE (NEGATIVE); URINE COLOR YELLOW; URINE GLUCOSE - DIPSTICK 500 mg/dL (NEGATIVE); URINE KETONE 15 mg/dL (NEGATIVE); URINE LEUK ESTERASE TRACE (NEGATIVE); URINE PROTEIN - DIPSTICK TRACE mg/dL (NEG-TRACE); URINE SPECIFIC GRAVITY 1.025
[2022-04-01 16:46] LABS: URINE BILIRUBIN - DIPSTICK SMALL (NEGATIVE)
[2022-04-01 16:47] LABS: URINE NITRITE - DIPSTICK NEGATIVE (Negative)
[2022-04-01] MEDS ORDERED: K-TAB20 MEQ PO ×2 (17:05→17:14)
[2022-04-01] MEDS ORDERED: PREVACID30 M1 PO ×2 (17:05→17:14)
[2022-04-01] MEDS ORDERED: ZOFRAN4 MG/TAB PO ×2 (17:05→17:14)
== END 2022-04-01 17:23 | disposition home or self-care (01) | DRG 392 ==
LOC: ED 14:10
PROVIDERS: Family Medicine
DX: R11.2 Nausea with vomiting, unspecified (principal); I10 Essential (primary) hypertension; E11.9 Type 2 diabetes mellitus without complications; E66.9 Obesity, unspecified; Z79.84 Long term (current) use of oral hypoglycemic drugs

== ENCOUNTER 2022-04-03 18:25 | Emergency (ER) | payer SELFPAY ==
[~2022-04-03] VITALS: Ht 162.6 cm; Wt 92.0 kg
[2022-04-03] VITALS (7 sets, daily range): BP systolic 100–148; BP diastolic 58–78
[~2022-04-03 18:25] MED LIST changes: +K-TAB20 MEQ PO; +PREVACID30 M1 PO; +ZOFRAN4 MG/TAB PO
[2022-04-03 19:57] LABS: URINE BLOOD DIPSTICK NEGATIVE (NEGATIVE); URINE COLOR YELLOW; URINE GLUCOSE - DIPSTICK NEGATIVE (NEGATIVE); URINE KETONE >=80 mg/dL (NEGATIVE); URINE LEUK ESTERASE NEGATIVE (NEGATIVE); URINE PROTEIN - DIPSTICK TRACE mg/dL (NEG-TRACE)
[2022-04-03 20:02] LABS: URINE BILIRUBIN - DIPSTICK SMALL (NEGATIVE); URINE NITRITE - DIPSTICK NEGATIVE (Negative)
[2022-04-03 20:04] LABS: URINE BACTERIA MANY hpf; URINE SQUAMOUS EPITHELIAL CELL FEW EPI/hpf (0-FEW)
[2022-04-03 21:01] LABS: HEMATOCRIT 38.3 % (37.0-47.0); HEMOGLOBIN 12.6 g/dl (12.0-16.0); IMMATURE GRANULOCYTES 0.1 % (0.0-5.0); MEAN CELL VOLUME 85.3 fL CALC (80.0-100.0); MEAN CORPUSCULAR HGB 28.1 pG CALC (26.0-32.0); MEAN CORPUSCULAR HGB CONC 32.9 g/dL CAL (32.0-36.0); NEUT# 7.82 thou/uL (2.00-7.15); RED BLOOD COUNT 4.49 mill/uL (4.20-5.60); RED CELL DISTRI WIDTH 12.7 % (11.5-15.5)
[2022-04-03 21:17] LABS: ALKALINE PHOSPHATASE 68 u/l (38-126); AMYLASE 45 u/l (30-110); ANION GAP 13 (6-22 (CALC)); BILIRUBIN, TOTAL 1.8 mg/dL (0.0-1.4); BUN 17 mg/dL (7-17); BUN/CREATININE RATIO 24 (12-20 (CALC)); CARBON DIOXIDE 31 mmol/l (22-30); CHLORIDE 96 mmol/l (95-108); CPK 137 u/l (30-165); CREATININE 0.7 mg/dL (0.5-1.0); GFR FOR AFR.AMER. > 60 ML/MIN (>=60 (CALC)); GFR OTHER RACES > 60 ML/MIN (>=60 (CALC)); LIPASE 82 u/l (23-300); POTASSIUM 2.6 mmol/l (3.5-5.1); SGOT/AST 31 u/l (14-36); SODIUM 137 mmol/l (137-146); TOTAL PROTEIN 6.3 g/dL (6.3-8.2)
[2022-04-03 21:21] LABS: MAGNESIUM 1.6 mg/dL (1.6-2.3)
[2022-04-03] MEDS ORDERED: PROCHLORPER25 MG RE (23:16)
== END 2022-04-03 23:35 | disposition home or self-care (01) | DRG 392 ==
LOC: ED 18:25
PROVIDERS: Family Medicine
DX: R11.2 Nausea with vomiting, unspecified (principal); E11.9 Type 2 diabetes mellitus without complications; I10 Essential (primary) hypertension; Z79.84 Long term (current) use of oral hypoglycemic drugs; Z20.822 Contact with and (suspected) exposure to COVID-19; R82.71 Bacteriuria

== ENCOUNTER 2022-04-04 15:24 | Observation (INO) | payer SELFPAY ==
[2022-04-04] VITALS (9 sets, daily range): BP systolic 107–130; BP diastolic 34–63
[~2022-04-04] VITALS: Ht 162.6 cm; Wt 92.1 kg
[~2022-04-04 15:24] MED LIST changes: +PROCHLORPER25 MG RE
[2022-04-04 15:55] LABS: URINE BILIRUBIN - DIPSTICK NEGATIVE (NEGATIVE); URINE COLOR YELLOW; URINE GLUCOSE - DIPSTICK NEGATIVE (NEGATIVE)
[2022-04-04 15:56] LABS: URINE BLOOD DIPSTICK NEGATIVE (NEGATIVE); URINE KETONE 40 mg/dL (NEGATIVE); URINE LEUK ESTERASE NEGATIVE (NEGATIVE); URINE NITRITE - DIPSTICK POSITIVE (Negative); URINE PROTEIN - DIPSTICK NEGATIVE (NEG-TRACE)
[2022-04-04 15:56] LABS: HEMATOCRIT 46.6 % (37.0-47.0); HEMOGLOBIN 15.3 g/dl (12.0-16.0); IMMATURE GRANULOCYTES 0.2 % (0.0-5.0); MEAN CELL VOLUME 85.3 fL CALC (80.0-100.0); MEAN CORPUSCULAR HGB CONC 32.8 g/dL CAL (32.0-36.0); NEUT# 9.77 thou/uL (2.00-7.15); RED BLOOD COUNT 5.46 mill/uL (4.20-5.60); RED CELL DISTRI WIDTH 12.9 % (11.5-15.5)
[2022-04-04 16:07] LABS: ALKALINE PHOSPHATASE 92 u/l (38-126); ANION GAP 20 (6-22 (CALC)); BILIRUBIN, TOTAL 2.3 mg/dL (0.0-1.4); BUN 19 mg/dL (7-17); BUN/CREATININE RATIO 23 (12-20 (CALC)); CARBON DIOXIDE 30 mmol/l (22-30); CHLORIDE 92 mmol/l (95-108); CREATININE 0.9 mg/dL (0.5-1.0); GFR FOR AFR.AMER. > 60 ML/MIN (>=60 (CALC)); GFR OTHER RACES > 60 ML/MIN (>=60 (CALC)); LIPASE 155 u/l (23-300); POTASSIUM 2.8 mmol/l (3.5-5.1); SODIUM 139 mmol/l (137-146)
[2022-04-04 16:12] LABS: ALBUMIN 5.2 g/dL (3.2-5.0); SGOT/AST 55 u/l (14-36)
[2022-04-05] VITALS (9 sets, daily range): BP systolic 98–116; BP diastolic 42–62
[2022-04-05] MEDS ORDERED: PIOGLITAZONE HC30 MG PO (02:35)
[2022-04-05] MEDS ORDERED: HYDROCHLOROT25 MG PO (02:40)
[2022-04-05] MEDS ORDERED: METFORMIN500 M2 PO (02:43)
[2022-04-05] MEDS ORDERED: LISINOPRIL5 MG PO (02:48)
[2022-04-05] MEDS ORDERED: GLIPIZIDE ER5 MG PO (02:52)
[2022-04-05] MEDS ORDERED: MELOXICAM7.5 MG PO (02:53)
[2022-04-05] MEDS ORDERED: VITAMIN D7 PO (02:59)
--- NOTE | 2022-04-05 03:48 | NUR ---
Pt appears to be sleeping at intervals. No noted complaints of nausea or vomiting. Taking small amounts of clear liquids and tolerating same. Will continue to monitor.
--- NOTE | 2022-04-05 05:00 | NUR ---
Pt up to bathroom to void. No c/o nausea or vomiting noted.
--- NOTE | 2022-04-05 07:30 | NUR ---
PT RESTING IN SEMI FOWLERS POSITION . PT A/OX3 ASSESSMENT ANS VS COMPELTED. HEART RHYTHM ON TELE. RESPRIAITONS UNLABORED.BOWEL SOUNDS ACTIVE. PT DENIES NAUSEA AND VOMITING. PT CLEAR LIQ DIET. PT IV SITE NOTED TO RFA 20G INFUSING WITH NS. PT DENIES ADDITIONAL NEEDS AT THE TIME ALL SAFETY PRECAUTIONS IN PLACE.
[2022-04-05 07:46] LABS: IMMATURE GRANULOCYTES 0.1 % (0.0-5.0); MEAN CELL VOLUME 87.3 fL CALC (80.0-100.0); MEAN CORPUSCULAR HGB 28.5 pG CALC (26.0-32.0); MEAN CORPUSCULAR HGB CONC 32.6 g/dL CAL (32.0-36.0); NEUT# 5.9 thou/uL (2.00-7.15); RED BLOOD COUNT 4.18 mill/uL (4.20-5.60); RED CELL DISTRI WIDTH 13.2 % (11.5-15.5)
[2022-04-05 07:51] LABS: ALKALINE PHOSPHATASE 64 u/l (38-126); BUN 13 mg/dL (7-17); BUN/CREATININE RATIO 17 (12-20 (CALC)); CARBON DIOXIDE 30 mmol/l (22-30); CHLORIDE 102 mmol/l (95-108); CREATININE 0.8 mg/dL (0.5-1.0); GFR FOR AFR.AMER. > 60 ML/MIN (>=60 (CALC)); GFR OTHER RACES > 60 ML/MIN (>=60 (CALC)); SGOT/AST 36 u/l (14-36); SODIUM 140 mmol/l (137-146)
[2022-04-05 07:53] LABS: ALBUMIN 3.9 g/dL (3.2-5.0); ANION GAP 11 (6-22 (CALC)); BILIRUBIN, TOTAL 1.2 mg/dL (0.0-1.4); MAGNESIUM 2.1 mg/dL (1.6-2.3); POTASSIUM 3.4 mmol/l (3.5-5.1); TOTAL PROTEIN 6.3 g/dL (6.3-8.2)
[2022-04-05 07:55] LABS: HEMATOCRIT 36.5 % (37.0-47.0); HEMOGLOBIN 11.9 g/dl (12.0-16.0)
--- NOTE | 2022-04-05 12:57 | NUR ---
PT STATED PROVIDER TO MOVE FROM CLEAR TO FULL LIQUID TO BE VERIFIED WITH PROVIDER.
--- NOTE | 2022-04-05 16:14 | NUR ---
PT NOW ON FULL LIQ. DM DIET. PT INFORMED. IV S.L PT DENIES ADDITIONAL NEEDS AT THE TIME. PT STATED BM TODAY.
--- NOTE | 2022-04-05 19:00 | NUR ---
Report received from ABBY RN. Pt sitting OOB in chair. No noted complaints. States to tolerating full liquids well. Will monitor.
[2022-04-06] VITALS (7 sets, daily range): BP systolic 115–136; BP diastolic 52–63
--- NOTE | 2022-04-06 05:15 | NUR ---
Pt appears to be asleep at intervals. Tolerating full liquid diet. No noted complaints over night.
[2022-04-06 05:45] LABS: HEMATOCRIT 37.8 % (37.0-47.0); HEMOGLOBIN 12.2 g/dl (12.0-16.0); IMMATURE GRANULOCYTES 0.1 % (0.0-5.0); MEAN CELL VOLUME 87.5 fL CALC (80.0-100.0); MEAN CORPUSCULAR HGB 28.2 pG CALC (26.0-32.0); MEAN CORPUSCULAR HGB CONC 32.3 g/dL CAL (32.0-36.0); NEUT# 4.08 thou/uL (2.00-7.15); RED BLOOD COUNT 4.32 mill/uL (4.20-5.60); RED CELL DISTRI WIDTH 13.4 % (11.5-15.5)
[2022-04-06 05:57] LABS: ANION GAP 12 (6-22 (CALC)); BUN 9 mg/dL (7-17); BUN/CREATININE RATIO 11 (12-20 (CALC)); CARBON DIOXIDE 27 mmol/l (22-30); CHLORIDE 102 mmol/l (95-108); CREATININE 0.8 mg/dL (0.5-1.0); GFR FOR AFR.AMER. > 60 ML/MIN (>=60 (CALC)); GFR OTHER RACES > 60 ML/MIN (>=60 (CALC)); MAGNESIUM 1.9 mg/dL (1.6-2.3); POTASSIUM 3.1 mmol/l (3.5-5.1); SODIUM 138 mmol/l (137-146)
--- NOTE | 2022-04-06 07:41 | NUR ---
RECIEVED REPORT. PT SITTING IN RECYLINER A/OX3. RESPIRATIONS EVEN AND UNLABORED ON ROOM AIR. LUNG SOUNDS CLEAR. HEAR RHYTHM NORMAL WITH TELE IN PLACE. BOWEL SOUNDS ACTIVE. #20G RAC PATENT. SKIN INTACT. PT C/O OF 5/10 HEAD ACHE, TYLNEOL ADMINISTERED. PT DENIES OF ANY ADDITIONAL NEEDS. ALL SAFTEY PRECAUTIONS ARE IN PLACE WITH CALL LIGHT IN REACH
--- NOTE | 2022-04-06 11:27 | NUR ---
PT RESTING IN SEMI FOWLERS POSITION WITH FAMILY AT BEDSIDE. RESPIRATIONS EVEN AND UNLABORED ON ROOM AIR. IV NOTED. PT DENIES OF ANY NEEDS AT THIS TIME. ALL SAFTEY PRECAUTIONS ARE IN PLACE WITH CALL LIGHT IN REACH
--- NOTE | 2022-04-06 14:36 | NUR ---
OBTAINED CONSENT AT THIS TIME. PT DENIES OF ANY QUESTIONS OR CONCERNS
--- NOTE | 2022-04-06 16:23 | NUR ---
PT RESTING IN RECYLINER WATCHING TV. RESPIRATIONS EVEN AND UNLABORED ON ROOM AIR. #20G RAC PATENT. TELE MONITORING IN PLACE. PT TOLERATING BOWEL PREP WELL. PT DENIES OF ANY NEEDS AT THIS TIME. ALL SAFTEY PRECAUTIONS ARE IN PLACE WITH CALL LIGHT IN REACH
--- NOTE | 2022-04-06 18:16 | NUR ---
PT REFUSING IVF AT THIS TIME. STATES SHE "HAS BEEN DRINKING ALL DAY AND DOESNT WANT ANY MORE FLUIDS DUE TO HER RINGS BEING TIGHT." IV FLUIDS ON HOLD AT THIS TIME.
--- NOTE | 2022-04-06 19:00 | NUR ---
Report received from off going RN. Pt received OOB in chair drinking golytely. Pt encouraged to continue to drink same as she's still not clear.
--- NOTE | 2022-04-06 23:45 | NUR ---
Pt has completed most of prep. BM now looking like clear yellow liquid. Pt aware to remain NPO after MN for procedure in am.
[2022-04-07] VITALS (12 sets, daily range): BP systolic 102–180; BP diastolic 46–79
[2022-04-07 05:08] LABS: HEMOGLOBIN 11.7 g/dl (12.0-16.0); IMMATURE GRANULOCYTES 0.1 % (0.0-5.0); MEAN CELL VOLUME 87.8 fL CALC (80.0-100.0); MEAN CORPUSCULAR HGB 28.5 pG CALC (26.0-32.0); MEAN CORPUSCULAR HGB CONC 32.5 g/dL CAL (32.0-36.0); NEUT# 5.14 thou/uL (2.00-7.15); RED BLOOD COUNT 4.1 mill/uL (4.20-5.60); RED CELL DISTRI WIDTH 13.4 % (11.5-15.5)
[2022-04-07 05:26] LABS: ALBUMIN 3.7 g/dL (3.2-5.0); ALKALINE PHOSPHATASE 46 u/l (38-126); ANION GAP 14 (6-22 (CALC)); BILIRUBIN, TOTAL 0.8 mg/dL (0.0-1.4); BUN 7 mg/dL (7-17); BUN/CREATININE RATIO 9 (12-20 (CALC)); CARBON DIOXIDE 24 mmol/l (22-30); CHLORIDE 105 mmol/l (95-108); CREATININE 0.8 mg/dL (0.5-1.0); GFR FOR AFR.AMER. > 60 ML/MIN (>=60 (CALC)); GFR OTHER RACES > 60 ML/MIN (>=60 (CALC)); MAGNESIUM 1.8 mg/dL (1.6-2.3); POTASSIUM 3.7 mmol/l (3.5-5.1); SGOT/AST 38 u/l (14-36); SODIUM 139 mmol/l (137-146); TOTAL PROTEIN 6.3 g/dL (6.3-8.2)
--- NOTE | 2022-04-07 06:12 | NUR ---
Pt kept NPO after MN for procedure this am. No noted complaints over night.
--- NOTE | 2022-04-07 10:19 | NUR ---
0750 PT WEMT FOR COLONOSCOPY VIA STRETCHER IN STABLE CONDITIONS.
[2022-04-07 15:33] LABS: URINE BILIRUBIN - DIPSTICK NEGATIVE (NEGATIVE); URINE BLOOD DIPSTICK NEGATIVE (NEGATIVE); URINE CLARITY CLEAR; URINE COLOR YELLOW; URINE GLUCOSE - DIPSTICK NEGATIVE (NEGATIVE); URINE KETONE NEGATIVE (NEGATIVE); URINE LEUK ESTERASE NEGATIVE (Negative); URINE NITRITE - DIPSTICK NEGATIVE (Negative); URINE PH 6.5 (4.5-8.0); URINE PROTEIN - DIPSTICK NEGATIVE (NEG-TRACE); URINE SPECIFIC GRAVITY <=1.005; URINE UROBILINOGEN - DIPSTICK 0.2 E.U./dL (0.2)
--- NOTE | 2022-04-07 18:12 | NUR ---
ALTE ENTRY 1107 PATIENT IS BACK FROM [facility]O [facility] ENDOSCOPY/COLONOSCOPY , AOx3,C/O MILD LOWER ABDOMINAL PAIN 3 OUT OF 10 ,Pt AMBULATES TO THE BATHROOM. THEN BECOMES NAUSEOUS, VSS, NO SIGNS OF DISTRESS NOTED AT THIS TIME. MADE AWARE NEW ORDER ON THE CHART TO FOLLOW.
[2022-04-08] VITALS: BP 105/57
[2022-04-08 04:19] VITALS: BP 94/43
[2022-04-08 04:49] VITALS: BP 94/43
[2022-04-08 06:31] VITALS: BP 120/44
[2022-04-08 07:08] VITALS: BP 120/44
[2022-04-08 12:16] VITALS: BP 122/44
[2022-04-08] MEDS ORDERED: LEVAQUIN750 M1 PO (14:25)
== END 2022-04-08 15:16 | disposition home or self-care (01) | DRG 392 ==
LOC: ED 15:24 → ED-I 17:50 → ED 18:08 → MS2 18:09
PROVIDERS: Family Medicine; Nurse Practitioner; ADMIT Internal Medicine; ATTEND Internal Medicine
PROC: 0DBE8ZX Excision of Large Intestine, Via Natural or Artificial Opening Endoscopic, Diagnostic (ICD-10-PCS; principal; 2022-04-07)
PROC: 0DB98ZX Excision of Duodenum, Via Natural or Artificial Opening Endoscopic, Diagnostic (ICD-10-PCS; 2022-04-07)
PROC: 0DB78ZX Excision of Stomach, Pylorus, Via Natural or Artificial Opening Endoscopic, Diagnostic (ICD-10-PCS; 2022-04-07)
DX: R11.2 Nausea with vomiting, unspecified (principal); R10.84 Generalized abdominal pain; N39.0 Urinary tract infection, site not specified; K29.50 Unspecified chronic gastritis without bleeding; K44.9 Diaphragmatic hernia without obstruction or gangrene; E87.6 Hypokalemia; I10 Essential (primary) hypertension; E11.9 Type 2 diabetes mellitus without complications; E78.5 Hyperlipidemia, unspecified; J45.909 Unspecified asthma, uncomplicated; B96.1 Klebsiella pneumoniae [K. pneumoniae] as the cause of diseases classified elsewhere; Z79.84 Long term (current) use of oral hypoglycemic drugs; Z85.42 Personal history of malignant neoplasm of other parts of uterus; Z87.440 Personal history of urinary (tract) infections; Z20.822 Contact with and (suspected) exposure to COVID-19; Z88.0 Allergy status to penicillin; E66.9 Obesity, unspecified
CPT/HCPCS: G0378; J3475; Q9967; S0164

== ENCOUNTER 2022-11-28 01:55 | Emergency (ER) | payer SELFPAY ==
[~2022-11-28] VITALS: Ht 162.6 cm; Wt 88.6 kg
[~2022-11-28 01:55] MED LIST changes: +GLIPIZIDE ER5 MG PO; +HYDROCHLOROT25 MG PO; +LEVAQUIN750 M1 PO; +LISINOPRIL5 MG PO; +MELOXICAM7.5 MG PO; +METFORMIN500 M2 PO; +PIOGLITAZONE HC30 MG PO; +VITAMIN D7 PO
[2022-11-28 02:40] LABS: BASO% 0.4 % (0-3); EOS% 1.4 % (0-8); IMMATURE GRANULOCYTES 0.5 % (0.0-5.0); MEAN CELL VOLUME 84.3 fL CALC (80.0-100.0); MEAN CORPUSCULAR HGB 26.7 pG CALC (26.0-32.0); MEAN CORPUSCULAR HGB CONC 31.7 g/dL CAL (32.0-36.0); MONO% 6.9 % (2-13); NEUT# 8.18 thou/uL (2.00-7.15); NEUT% 73.8 % (42-76); RED BLOOD COUNT 5.35 mill/uL (4.20-5.60); RED CELL DISTRI WIDTH 13.2 % (11.5-15.5)
[2022-11-28 02:44] LABS: ANION GAP 18 (6-22 (CALC)); BUN 18 mg/dL (7-17); BUN/CREATININE RATIO 20 (12-20 (CALC)); CARBON DIOXIDE 26 mmol/l (22-30); CHLORIDE 96 mmol/l (95-108); CREATININE 0.9 mg/dL (0.5-1.0); GFR FOR AFR.AMER. > 60 ML/MIN (>=60 (CALC)); GFR OTHER RACES > 60 ML/MIN (>=60 (CALC)); LIPASE 100 u/l (23-300); MAGNESIUM 1.5 mg/dL (1.6-2.3); POTASSIUM 3.7 mmol/l (3.5-5.1); SGOT/AST 45 u/l (14-36); SODIUM 137 mmol/l (137-146)
[2022-11-28 02:46] LABS: ALKALINE PHOSPHATASE 90 u/l (38-126); BILIRUBIN, TOTAL 1.6 mg/dL (0.02-1.3); HEMATOCRIT 45.1 % (37.0-47.0); HEMOGLOBIN 14.3 g/dl (12.0-16.0)
[2022-11-28 03:01] LABS: URINE BILIRUBIN - DIPSTICK NEGATIVE (NEGATIVE); URINE BLOOD DIPSTICK NEGATIVE (NEGATIVE); URINE COLOR YELLOW; URINE GLUCOSE - DIPSTICK NEGATIVE (NEGATIVE); URINE KETONE 15 mg/dL (NEGATIVE); URINE LEUK ESTERASE NEGATIVE (NEGATIVE); URINE PH 6.5 (4.5-8.0); URINE PROTEIN - DIPSTICK TRACE mg/dL (NEG-TRACE); URINE UROBILINOGEN - DIPSTICK 0.2 E.U./dL (0.2)
[2022-11-28 03:03] LABS: URINE NITRITE - DIPSTICK NEGATIVE (Negative)
[2022-11-28] MEDS ORDERED: COMPAZINE10 MG PO (05:33)
[2022-11-28 05:45] VITALS: BP 157/65
[2022-11-28] MEDS ORDERED: PROCHLORPER25 MG RE (09:51)
== END 2022-11-28 06:19 | disposition home or self-care (01) | DRG 392 ==
LOC: ED 01:55
PROVIDERS: Family Medicine
DX: R11.2 Nausea with vomiting, unspecified (principal); R19.7 Diarrhea, unspecified; R10.33 Periumbilical pain; E11.9 Type 2 diabetes mellitus without complications; I10 Essential (primary) hypertension; E66.9 Obesity, unspecified; Z79.84 Long term (current) use of oral hypoglycemic drugs

== ENCOUNTER 2022-12-23 20:47 | Emergency (ER) | payer SELFPAY ==
[~2022-12-23] VITALS: Ht 162.6 cm; Wt 89.0 kg
[~2022-12-23 20:47] MED LIST changes: +COMPAZINE10 MG PO
[2022-12-23 21:53] LABS: BASO% 0.4 % (0-3); EOS% 0.3 % (0-8); HEMATOCRIT 47.8 % (37.0-47.0); HEMOGLOBIN 15.4 g/dl (12.0-16.0); IMMATURE GRANULOCYTES 0.1 % (0.0-5.0); LYMPH% 12.2 % (15-41); MEAN CELL VOLUME 82.4 fL CALC (80.0-100.0); MEAN CORPUSCULAR HGB 26.6 pG CALC (26.0-32.0); MEAN CORPUSCULAR HGB CONC 32.2 g/dL CAL (32.0-36.0); MONO% 6.2 % (2-13); NEUT# 9.08 thou/uL (2.00-7.15); NEUT% 80.8 % (42-76); RED BLOOD COUNT 5.8 mill/uL (4.20-5.60)
[2022-12-23 21:54] LABS: URINE BLOOD DIPSTICK TRACE-INTACT (NEGATIVE); URINE COLOR YELLOW; URINE GLUCOSE - DIPSTICK >=1000 mg/dL (NEGATIVE); URINE KETONE >=80 mg/dL (NEGATIVE); URINE LEUK ESTERASE NEGATIVE (NEGATIVE); URINE PROTEIN - DIPSTICK NEGATIVE (NEG-TRACE); URINE SPECIFIC GRAVITY 1.015; URINE UROBILINOGEN - DIPSTICK 0.2 E.U./dL (0.2)
[2022-12-23 21:55] LABS: URINE BILIRUBIN - DIPSTICK SEE COMMNET (NEGATIVE); URINE NITRITE - DIPSTICK NEGATIVE (Negative)
[2022-12-23 22:04] LABS: ALBUMIN 5.6 g/dL (3.2-5.0); ALKALINE PHOSPHATASE 114 u/l (38-126); ANION GAP 25 (6-22 (CALC)); BUN 20 mg/dL (7-17); BUN/CREATININE RATIO 22 (12-20 (CALC)); CARBON DIOXIDE 23 mmol/l (22-30); CHLORIDE 95 mmol/l (95-108); CREATININE 0.9 mg/dL (0.5-1.0); GFR FOR AFR.AMER. > 60 ML/MIN (>=60 (CALC)); GFR OTHER RACES > 60 ML/MIN (>=60 (CALC)); LIPASE 92 u/l (23-300); POTASSIUM 4.1 mmol/l (3.5-5.1); SGOT/AST 62 u/l (14-36); SODIUM 139 mmol/l (137-146); TOTAL PROTEIN 9.4 g/dL (6.3-8.2)
[2022-12-23 22:05] LABS: BILIRUBIN, TOTAL 2.5 mg/dL (0.02-1.3)
[2022-12-24 00:44] VITALS: BP 132/63
== END 2022-12-24 01:19 | disposition home or self-care (01) | DRG 392 ==
LOC: ED 20:47
PROVIDERS: Family Medicine
DX: R11.2 Nausea with vomiting, unspecified (principal); I10 Essential (primary) hypertension; E11.9 Type 2 diabetes mellitus without complications; Z79.84 Long term (current) use of oral hypoglycemic drugs

== ENCOUNTER 2022-12-25 15:00 | Emergency (ER) | payer SELFPAY ==
[~2022-12-25] VITALS: Ht 162.6 cm; Wt 89.0 kg
[2022-12-25] VITALS (15 sets, daily range): BP systolic 152–178; BP diastolic 76–95
[2022-12-25 15:43] LABS: BASO% 0.2 % (0-3); HEMATOCRIT 45.1 % (37.0-47.0); HEMOGLOBIN 14.3 g/dl (12.0-16.0); IMMATURE GRANULOCYTES 0.5 % (0.0-5.0); LYMPH% 8.9 % (15-41); MEAN CELL VOLUME 83.8 fL CALC (80.0-100.0); MEAN CORPUSCULAR HGB 26.6 pG CALC (26.0-32.0); MEAN CORPUSCULAR HGB CONC 31.7 g/dL CAL (32.0-36.0); MONO% 4.9 % (2-13); NEUT# 11.97 thou/uL (2.00-7.15); NEUT% 85.5 % (42-76); RED BLOOD COUNT 5.38 mill/uL (4.20-5.60); RED CELL DISTRI WIDTH 12.9 % (11.5-15.5)
[2022-12-25 15:55] LABS: ALBUMIN 4.9 g/dL (3.2-5.0); ALKALINE PHOSPHATASE 87 u/l (38-126); ANION GAP 21 (6-22 (CALC)); BILIRUBIN, TOTAL 3.4 mg/dL (0.02-1.3); BUN 22 mg/dL (7-17); BUN/CREATININE RATIO 30 (12-20 (CALC)); CARBON DIOXIDE 23 mmol/l (22-30); CHLORIDE 97 mmol/l (95-108); CREATININE 0.7 mg/dL (0.5-1.0); GFR FOR AFR.AMER. > 60 ML/MIN (>=60 (CALC)); GFR OTHER RACES > 60 ML/MIN (>=60 (CALC)); POTASSIUM 3.8 mmol/l (3.5-5.1); SGOT/AST 51 u/l (14-36); SODIUM 137 mmol/l (137-146); TOTAL PROTEIN 8.1 g/dL (6.3-8.2)
[2022-12-25 17:01] LABS: URINE BLOOD DIPSTICK TRACE-LYSED (NEGATIVE); URINE COLOR YELLOW; URINE GLUCOSE - DIPSTICK >=1000 mg/dL (NEGATIVE); URINE KETONE >=80 mg/dL (NEGATIVE); URINE LEUK ESTERASE NEGATIVE (NEGATIVE); URINE PROTEIN - DIPSTICK NEGATIVE (NEG-TRACE); URINE UROBILINOGEN - DIPSTICK 0.2 E.U./dL (0.2)
[2022-12-25 17:02] LABS: URINE BILIRUBIN - DIPSTICK SEE COMMNET (NEGATIVE); URINE NITRITE - DIPSTICK NEGATIVE (Negative)
[2022-12-26 00:01] VITALS: BP 157/85
[2022-12-26 00:30] VITALS: BP 164/80
[2022-12-26 01:00] VITALS: BP 164/93
[2022-12-26 01:31] VITALS: BP 156/63
[2022-12-26 01:47] VITALS: BP 156/63
== END 2022-12-26 01:48 | disposition short-term general hospital (02) | DRG 392 ==
LOC: ED 15:00
PROVIDERS: Family Medicine
DX: R10.11 Right upper quadrant pain (principal); R10.13 Epigastric pain; E80.6 Other disorders of bilirubin metabolism; I10 Essential (primary) hypertension; E11.9 Type 2 diabetes mellitus without complications; Z79.84 Long term (current) use of oral hypoglycemic drugs; Z90.49 Acquired absence of other specified parts of digestive tract
CPT/HCPCS: Q9967

== ENCOUNTER 2023-08-04 19:10 | Emergency (ER) | payer SELFPAY ==
[~2023-08-04] VITALS: Ht 162.6 cm; Wt 83.0 kg
[2023-08-04] MEDS ORDERED: [UNRECOGNIZED DRUG - MIXTURE] (20:15)
[2023-08-04] MEDS ORDERED: LANSOPRAZOLE PO (20:15)
[2023-08-04] MEDS ORDERED: JARDIANCE25 MG PO (20:16)
[2023-08-04] MEDS ORDERED: FAMOTIDINE 10MG/ML 2ML SDV IV ONE (20:35)
[2023-08-04] MEDS ORDERED: DEXTROSE 5% w/NACL 0.45 1,000 ML IV ONE (20:35)
[2023-08-04] MEDS ORDERED: ONDANSETRON HCl 4 MG/2 ML SDV IV ONE (20:35)
[2023-08-04 20:48] LABS: URINE BILIRUBIN - DIPSTICK Negative (NEGATIVE); URINE BLOOD DIPSTICK Trace-intact (NEGATIVE); URINE COLOR Yellow; URINE GLUCOSE - DIPSTICK >=1000 mg/dL (NEGATIVE); URINE KETONE 40 mg/dL (NEGATIVE); URINE LEUK ESTERASE Negative (NEGATIVE); URINE NITRITE - DIPSTICK Negative (Negative); URINE PH 6.5 (4.5-8.0); URINE PROTEIN - DIPSTICK Trace mg/dL (NEG-TRACE); URINE SPECIFIC GRAVITY 1.015; URINE UROBILINOGEN - DIPSTICK 0.2 E.U./dL (0.2)
[2023-08-04 20:48] LABS: BASO% 0.2 % (0-3); EOS% 0.3 % (0-8); HEMATOCRIT 47.1 % (37.0-47.0); HEMOGLOBIN 15.3 g/dl (12.0-16.0); IMMATURE GRANULOCYTES 0.1 % (0.0-5.0); MEAN CELL VOLUME 80.4 fL CALC (80.0-100.0); MEAN CORPUSCULAR HGB 26.1 pG CALC (26.0-32.0); MEAN CORPUSCULAR HGB CONC 32.5 g/dL CAL (32.0-36.0); MONO% 6.2 % (2-13); NEUT# 7.69 thou/uL (2.00-7.15); NEUT% 78.2 % (42-76); RED BLOOD COUNT 5.86 mill/uL (4.20-5.60); RED CELL DISTRI WIDTH 13.7 % (11.5-15.5)
[2023-08-04 21:03] LABS: ALKALINE PHOSPHATASE 94 u/l (38-126); ANION GAP 15 (6-22 (CALC)); BILIRUBIN, TOTAL 1.7 mg/dL (0.02-1.3); BUN 19 mg/dL (7-17); BUN/CREATININE RATIO 21 (12-20 (CALC)); CARBON DIOXIDE 30 mmol/l (22-30); CHLORIDE 96 mmol/l (95-108); CREATININE 0.9 mg/dL (0.5-1.0); GFR FOR AFR.AMER. > 60 ML/MIN (>=60 (CALC)); GFR OTHER RACES > 60 ML/MIN (>=60 (CALC)); LIPASE 90 u/l (23-300); SGOT/AST 42 u/l (14-36); SODIUM 137 mmol/l (137-146); TOTAL PROTEIN 7.8 g/dL (6.3-8.2)
[2023-08-04 21:43] VITALS: BP 151/74
[2023-08-04 22:01] VITALS: BP 143/69
[2023-08-04 22:30] VITALS: BP 136/77
[2023-08-04 23:00] VITALS: BP 140/78
[2023-08-04] MEDS ORDERED: ZOFRAN4 MG/TAB PO (23:15)
[2023-08-04] MEDS ORDERED: DiphenhydrAMINE HCL 50 MG/ML SDV IV ONE (23:20)
[2023-08-04] MEDS ORDERED: METOCLOPRAMIDE HCL 10 MG/2 ML SDV IV ONE (23:20)
[2023-08-04 23:30] VITALS: BP 132/62
[2023-08-05] VITALS: BP 134/56
[2023-08-05 00:30] VITALS: BP 128/63
[2023-08-05 01:25] VITALS: BP 128/63
[2023-08-06] MEDS ORDERED: REGLAN10 MG PO (15:58)
== END 2023-08-05 01:35 | disposition home or self-care (01) | DRG 392 ==
LOC: ED 19:10
PROVIDERS: Emergency Medicine
DX: R11.2 Nausea with vomiting, unspecified (principal); R19.7 Diarrhea, unspecified; I10 Essential (primary) hypertension; E11.9 Type 2 diabetes mellitus without complications; E78.00 Pure hypercholesterolemia, unspecified; Z79.84 Long term (current) use of oral hypoglycemic drugs

== ENCOUNTER 2023-08-06 11:31 | Emergency (ER) | payer SELFPAY ==
[~2023-08-06] VITALS: Ht 162.6 cm; Wt 84.8 kg
[2023-08-06] VITALS (12 sets, daily range): BP systolic 134–158; BP diastolic 52–81
[~2023-08-06 11:31] MED LIST changes: +JARDIANCE25 MG PO; +LANSOPRAZOLE PO; +[UNRECOGNIZED DRUG - MIXTURE]
[2023-08-06] MEDS ORDERED: LACTATED RINGER'S 1,000 ML IV STA (13:25)
[2023-08-06] MEDS ORDERED: METOCLOPRAMIDE HCL 10 MG/2 ML SDV IV ONE (13:30)
[2023-08-06] MEDS ORDERED: FAMOTIDINE 10MG/ML 2ML SDV IV ONE (13:30)
[2023-08-06 13:49] LABS: BASO% 0.2 % (0-3); EOS% 0.1 % (0-8); HEMATOCRIT 48.4 % (37.0-47.0); HEMOGLOBIN 15.9 g/dl (12.0-16.0); IMMATURE GRANULOCYTES 0.2 % (0.0-5.0); LYMPH% 7.7 % (15-41); MEAN CORPUSCULAR HGB 26.3 pG CALC (26.0-32.0); MEAN CORPUSCULAR HGB CONC 32.9 g/dL CAL (32.0-36.0); MONO% 4.3 % (2-13); NEUT# 11.34 thou/uL (2.00-7.15); NEUT% 87.5 % (42-76); RED BLOOD COUNT 6.05 mill/uL (4.20-5.60); RED CELL DISTRI WIDTH 13.5 % (11.5-15.5)
[2023-08-06 14:08] LABS: ALBUMIN 5.2 g/dL (3.2-5.0); ALKALINE PHOSPHATASE 99 u/l (38-126); BUN 21 mg/dL (7-17); BUN/CREATININE RATIO 26 (12-20 (CALC)); CHLORIDE 94 mmol/l (95-108); CREATININE 0.8 mg/dL (0.5-1.0); GFR FOR AFR.AMER. > 60 ML/MIN (>=60 (CALC)); GFR OTHER RACES > 60 ML/MIN (>=60 (CALC)); LIPASE 93 u/l (23-300); POTASSIUM 3.5 mmol/l (3.5-5.1); SGOT/AST 50 u/l (14-36); SODIUM 136 mmol/l (137-146); TOTAL PROTEIN 8.4 g/dL (6.3-8.2)
[2023-08-06 14:09] LABS: ANION GAP 25 (6-22 (CALC)); BILIRUBIN, TOTAL 3.3 mg/dL (0.02-1.3); CARBON DIOXIDE 21 mmol/l (22-30)
[2023-08-06 15:17] LABS: URINE BLOOD DIPSTICK Trace-lysed (NEGATIVE); URINE GLUCOSE - DIPSTICK 500 mg/dL (NEGATIVE); URINE KETONE >=160 mg/dL (NEGATIVE); URINE LEUK ESTERASE Negative (NEGATIVE); URINE NITRITE - DIPSTICK Negative (Negative); URINE PH 5.5 (4.5-8.0); URINE PROTEIN - DIPSTICK Negative (NEG-TRACE); URINE UROBILINOGEN - DIPSTICK 0.2 E.U./dL (0.2)
[2023-08-06 15:19] LABS: URINE COLOR Yellow
[2023-08-06] MEDS ORDERED: REGLAN10 MG PO (15:58)
== END 2023-08-06 16:15 | disposition home or self-care (01) | DRG 392 ==
LOC: ED 11:31
PROVIDERS: Nurse Practitioner Acute Care
DX: R10.13 Epigastric pain (principal); I10 Essential (primary) hypertension; E11.9 Type 2 diabetes mellitus without complications; E78.00 Pure hypercholesterolemia, unspecified; Z79.84 Long term (current) use of oral hypoglycemic drugs; Z20.822 Contact with and (suspected) exposure to COVID-19